=== PATIENT | male | born 1990 | race American Indian/Alaskan Native ===

== ENCOUNTER → 2024-10-12 | Outpatient (CLI) | payer OTHER, SELFPAY ==
--- NOTE | 2024-10-12 | XR_ITS ---
Examination: Ultrasound soft tissue neck TECHNIQUE: Grayscale sonographic images soft tissue neck submental Exam date and time: October 12, 2024 1353 hours INDICATIONS: Palpable lump in the neck underneath the chin noticed beginning 4 months ago. FINDINGS: 16 x 8 x 16 mm lymph node in the submental region IMPRESSION: 16 x 8 x 16 mm lymph node at the area concern Consider CT soft tissue neck post intravenous contrast follow-up
--- NOTE | 2024-10-12 13:30 | XR_ITS ---
Examination: Thyroid sonography complete TECHNIQUE: Grayscale sonographic images thyroid lobes are carful analysis Exam date and time: October 12, 2024 1348 hours INDICATIONS: Palpable lump in neck underneath the chin noticed beginning 4 months ago. FINDINGS: Right thyroid 5.9 x 1.7 x 2.1 cm Lower pole cyst 5 x 6 mm Left thyroid 6.1 x 2.1 x 2.0 cm No solid nodules either thyroid IMPRESSION: Thyromegaly, consider correlation with I-[id number] thyroid uptake and scan
== END | disposition home or self-care (01) ==
PROVIDERS: PCP Physician Assistant; Referring Provider Physician Assistant; Visit Provider Physician Assistant
DX: R22.1 Localized swelling, mass and lump, neck (principal); E01.0 Iodine-deficiency related diffuse (endemic) goiter
CPT/HCPCS: 76536